=== PATIENT | male | born 1955 | race Caucasian/White ===

== ENCOUNTER 2022-12-28 17:13 | Emergency (ER) | payer MEDICARE | END 2022-12-28 18:34 | disposition home or self-care (01) | LOC: JP.ED 17:13 | DX: G45.9 Transient cerebral ischemic attack, unspecified (principal); Z88.1 Allergy status to other antibiotic agents; Z88.8 Allergy status to other drugs, medicaments and biological substances | CPT/HCPCS: 70450; 70450-26; 82947; 99285 ==